=== PATIENT | female | born 1965 | race Caucasian/White ===

== ENCOUNTER 2025-09-08 12:16 | Outpatient (CLI) | payer OTHER | END 2025-09-08 12:17 | disposition home or self-care (01) | LOC: BICMAMMO 12:16 | PROVIDERS: ATTEND Nurse Practitioner Family | DX: Z12.31 Encounter for screening mammogram for malignant neoplasm of breast (principal); N64.89 Other specified disorders of breast | CPT/HCPCS: 77063; 77067 ==